=== PATIENT | male | born 2005 | race Caucasian/White ===

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

== ENCOUNTER 2023-06-28 12:26 | Emergency (ER) | payer OTHER, SELFPAY ==
[2023-06-28 12:34] VITALS: BP 137/82; PULSE 66; RESP 16; O2SAT 98; BMI 27.7
[2023-06-28 12:42] VITALS: TEMP 36.6
--- NOTE | 2023-06-28 12:42 | ED_ITS ---
HPI - General Adult General Date Seen: 06/28/23 Chief complaint: Head Injury/Pain Stated complaint: R cauliflower ear Time Seen by Provider: 06/28/23 12:40 History of Present Illness HPI narrative: This is a 18-year-old previously healthy male presenting to the ER today with concern for and ear injury. He is generally healthy and fully vaccinated. 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 He has had a swollen hematoma on his right ear. He 1st injured his right ear about 2 weeks ago during rest LEEP practice. He has been trying to let it heal on its own and has been neglecting it because wrestling season has been dizzy. He has re-injured it a couple of times and it has been getting bigger over the past couple of days. Now the wrestling season is over he sought medical attention for. He wants to avoid formation of cauliflower ear. He is otherwise healthy. No history of coagulopathy. No head injury. Left ear normal. He went to the urgent care this morning and was told follow-up with ENT. He was unable to get an expeditious ENT clinic appointment so came here to the ER. He knows that if he waits too long permanent damage could occur. Related Data Home Medications Medication Instructions Recorded Confirmed No Known Home Medications 06/28/23 Allergies Allergy/AdvReac Type Severity Reaction Status Date / Time No Known Drug Allergies Allergy Verified 06/28/23 09:18 [facility] Medical History (Updated 06/28/23 @ 13:45 by Timo Dillon MD) Ringworm ?B35.9 - Dermatophytosis, unspecified (ICD-10) Social History Smoking Status: Never smoker Do you use any of these nicotine containing products: None How often do you have a drink containing alcohol: never How often do you have six or more drinks on one occasion: Never AUDIT-C Alcohol total score: 0 Non-prescribed substance use: denies use service: No Exam Narrative: Exam Narrative: Constitutional: Appears well-developed and well-nourished. Alert. Conversant. Non toxic. HENT: Head: Atraumatic. No depressed skull fracture, Raccoon Eyes, Lester's sign, or hemotympanum. Face normal. TMs normal Right ear: Canal, TM, mastoid are normal. Lobule normal. There is swelling and erythema involving the anti tragus. No definite fluctuant fluid collection or hematoma. It feels a bit firm. There is clearly less definition of the anatomy of the antitragus when compared to the normal left ear. Left ear: Uninjured. Normal. Nose: Nose normal. Mouth/Throat: Oral mucosa is clear and moist. no trismus. Pharynx normal. Tonsils symmetric. No tonsillar enlargement, erythema, or exudate. Eyes: Conjunctivae normal. EOM normal. Pupils equal, round, and reactive to light. No scleral icterus. Neck: Normal range of motion. Neck supple. No tracheal deviation present. Cardiovascular: Normal rate, regular rhythm. No gallop. Pulmonary/Chest: Effort normal. No stridor. No respiratory distress. Musculoskeletal: RUE: Normal range of motion. No deformity LUE: Normal range of motion. No deformity RLE: Normal range of motion. No edema. No deformity LLE: Normal range of motion. No edema. No deformity Neurological: Alert and oriented to person, place, and time. Normal strength. CN II-VII intact. No sensory deficit. GCS eye subscore is 4. GCS verbal subscore is 5. GCS motor subscore is 6. Normal coordination Skin: Skin is warm and dry. No rash noted. No pallor. Normal capillary refill. Psychiatric: Normal mood. Normal affect. Const: Vital Signs, click to edit/add: Vital Signs - 24 hr 06/28/23 12:34 06/28/23 12:42 Temperature 97.9 F Pulse Rate [Right Pulse Oximeter] 66 Respiratory Rate 16 Blood Pressure [Ri ght Upper Arm] 137/82 Pulse Oximetry 98 Oxygen Delivery Me thod Room Air Course Vital Signs Vital signs: Initial Vital Signs Pulse Rate 66 06/28/23 12:34 Pulse Rhythm Regular 06/28/23 12:34 Pulse Strength 3+ Normal 06/28/23 12:34 Respiratory Rate 16 06/28/23 12:34 Blood Pressure 137/82 06/28/23 12:34 Blood Pressure Mean 100 06/28/23 12:34 Blood Pressure Position Sitting 06/28/23 12:34 Pulse Oximetry 98 06/28/23 12:34 Oxygen Delivery Method Room Air 06/28/23 12:34 Vital Signs Pulse Rate 66 06/28/23 12:34 Respiratory Rate 16 06/28/23 12:34 Blood Pressure 137/82 06/28/23 12:34 Pulse Oximetry 98 06/28/23 12:34 Oxygen Delivery Method Room Air 06/28/23 12:34 Temperature 97.9 F 06/28/23 12:42 Pulse Rate 66 06/28/23 12:34 Respiratory Rate 16 06/28/23 12:34 Blood Pressure 137/82 06/28/23 12:34 Pulse Oximetry 98 06/28/23 12:34 Oxygen Delivery Method Room Air 06/28/23 12:34 Medical Decision Making MDM Narrative Medical decision making narrative: 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 He actually injured dizzy about 2 weeks ago in wrestling fractures and has injured a couple of times since then. Concern here is for a regular hematoma which can lead to damage to the are regular cartilage and resulting cauliflower ear. However this seems to be a bit of a subacute hematoma, having been injured about 2 weeks ago. Discussed with the patient that if the hematoma was already organized into a clot, we may not be able to do much good by aspirating for performing incision and drainage. Patient understands but thinks that there is at least some component of acute hematoma here. He would be willing to try aspiration or incision and drainage. We contacted ENT. I sent him a photo the patient is here. He agrees that this appears to be more subacute and may not benefit from I&D. He would recommend that we attempt to do aspiration here in the ER and that if we can get blood out we could apply packing and pressure dressing to try to prevent blood accumulation and have him follow-up tomorrow in the ER. Dr. Barragan will be in the OR tomorrow but may be able to recheck him between cases if he comes back to the ER. I had a verbal discussion with the patient about options for care. He would be agreeable to try aspiration. Procedure: Aspiration of right ear of regular hematoma Verbal consent Sterile prepped using Betadine. Local anesthesia using local injection of 1.5 mL of 1% lidocaine without epi. We injected superficially under this can in the area of concern. Good anesthesia was achieved. Using an 18 gauge needle we entered the skin through the anesthetized area. I initially anesthetized just anterior to the anterior tragus and was able to aspirate about 1-1.5 mL of bloody fluid. We then performed digital pressure on the ear to try to express more fluid through the aspiration site. There still seemed to be residual fluid on the upper portion of the anti helix. We re- entered again using sterile technique with an 18 gauge needle and aspirated about 0.3 mL of fluid from underneath the skin directly above the anti helix. We again applied digital pressure to explore this fluid. After this we were able to visually see improved anatomy of the anti helix and I suspect we were successful in draining the hematoma. We created a pressure dressing with gauze behind the auricle of the ear and formed petroleum gauze in the scaphoid a between the anti helix and helix as well as petroleum gauze anterior to the anti helix in the montse of the ear. We then applied a gauze over the ear and upgraded a pressure dressing with Coban to try to prevent reaccumulation of hematoma. Plan of care will be keep the pressure dressing on tonight and tomorrow. He will come back to the ER here in [place] tomorrow for recheck. We can re- evaluate for any signs of reaccumulation hematoma and if necessary may be able to contact ENT and he may be able to see the patient between cases tomorrow. Precautions for return to the ER right away and discussed the importance of wound care and avoiding repeat trauma to the ear. He says he will wear his head gear from now on during practice. He is up-to-date on tetanus. No indication for prophylactic antibiotics at this time. Discharge Plan Discharge Clinical Impression: Hematoma of auricle Patient Disposition: Home, Self-Care Condition: Stable Additional Instructions: Please keep the dressing on a today and tonight. Return to the ER here in [place] tomorrow during the day for a recheck. We can remove the dressing tomorrow and see if his any sign of reaccumulating blood on your ear. If your ear looks good, we Will likely replace the dressing tomorrow and keep it on for several days at home to prevent reaccumulation of the blood clot. If you have any concerns tonight such as worsening pain, high fever, bleeding from her ear, or if the dressing becomes dislodged, come back to the ER right away. Prescriptions: No Action No Known Home Medications Follow Up/Referrals: Provider,Not a Local [Primary Care Provider] - Stand Alone Forms: [employer] Info Instructions
== END 2023-06-28 14:07 | disposition home or self-care (01) ==
PROVIDERS: Emergency Provider Emergency Medicine
DX: H61.121 Hematoma of pinna, right ear (principal); Y93.72 Activity, wrestling
CPT/HCPCS: 69000; 99282; 99283